=== PATIENT | male | born 1970 | race Caucasian/White ===

== ENCOUNTER 2020-08-18 12:53 | Observation (INO) | payer BC, SELFPAY ==
[2020-08-18] VITALS (11 sets, daily range): BP systolic 118–141; BP diastolic 74–101; PULSE 65–93; RESP 14–22; TEMP 36.4–36.8; O2SAT 97–100; BMI 27.6
--- NOTE | ~2020-08-18 | XR_ITS ---
EXAMINATION: XR chest 2V DATE: 08/18/2020 14:08 INDICATION: Chest pain and right arm numbness TECHNIQUE: Frontal and lateral views of the chest are obtained COMPARISON: 06/22/2012 FINDINGS: There is minimal airspace opacity of the right midlung zone. There is no pleural effusion o r pneumothorax. The cardiomediastinal silhouette is normal. The visualized bones and soft tissues are unremarkable. IMPRESSION: 1. Minimal airspace opacity of the right midlung zone, likely infectious or inflammatory. Reviewed, dictated and finalized at location A. IMPRESSION: 1. Minimal airspace opacity of the right midlung zone, likely infectious or inf lammatory.
--- NOTE | ~2020-08-18 | CT_ITS ---
EXAMINATION: CTA brain carotid DATE: 08/18/2020 13:41 INDICATION: Right-sided face arm and leg numbness TECHNIQUE: Computed tomographic angiography (CTA) of the head was performed without and with 100 mL O mnipaque-350 intravenous contrast. CTA of the neck was performed with intravenous contrast. The dose- length product was 1776.21 mGy-cm. Maximum intensity projection and volume rendered 3D-reconstruction s were created by the technologist on a separate workstation. Automated exposure control and iterativ e reconstruction technique were employed. COMPARISON: None. FINDINGS: HEAD CTA: There is no intracranial hemorrhage, acute infarction, or abnormal mass lesion. The ventric les are normal. There is no abnormal mass effect or midline shift. The guardado-white matter differentiat ion is normal. The basal cisterns are patent. The orbits are normal. There is mild mucosal thickening of the paranasal sinuses. There is no significant stenosis of the basilar artery or posterior cerebral arteries. There is no si gnificant stenosis of the intracranial internal carotid arteries or the anterior or middle cerebral a rteries. The anterior communicating artery and posterior communicating arteries are normal. There is no aneurysm. NECK CTA: The thyroid gland is unremarkable. The submandibular and parotid glands are symmetric. Ther e is no lymphadenopathy. There are no masses identified. The airway is unremarkable. Mild cervical sp ondylosis is noted. The superior mediastinum is unremarkable. There is 0% stenosis of the proximal right internal carotid artery relative to normal distal artery l umen diameter (NASCET criteria). There is 0% stenosis of the proximal left internal carotid artery re lative to normal distal artery lumen diameter. The right vertebral artery is hypoplastic. IMPRESSION: 1. No acute intracranial abnormality. Normal head CTA. 2. 0% stenosis of the proximal right internal carotid artery relative to normal distal artery lumen d iameter (NASCET criteria). 3. 0% stenosis of the proximal left internal carotid artery relative to normal distal artery lumen di ameter. 4. Hypoplastic right vertebral artery. Reviewed, dictated and finalized at location A. IMPRESSION: 1. No acute intracranial abnormality. Normal head CTA. 2. 0% stenosis of the proximal right internal carotid artery relative to normal distal artery lumen diameter (NASCET criteria). 3. 0% stenosis of the proximal left internal carotid artery relative to normal distal artery lumen diameter. 4. Hypoplastic right vertebral artery.
--- NOTE | ~2020-08-18 | MR_ITS ---
EXAMINATION: MR brain/brain stem wo con DATE: 08/19/2020 12:54 INDICATION: Right-sided numbness. TECHNIQUE: Magnetic resonance imaging (MRI) of the brain and brainstem was performed without intraven ous contrast. Sequences included sagittal and axial T1-weighted FSE, axial diffusion-weighted FS EPI, axial T2*-weighted GRE, axial T2-weighted FLAIR Propeller, and axial T2-weighted Propeller. Apparent diffusion coefficient (ADC) maps were created. COMPARISON: Head CT 08/18/2020 FINDINGS: There is no intracranial hemorrhage, acute infarction, or abnormal intracranial mass lesion . The ventricles are normal in size. There is mild mucosal thickening in the paranasal sinuses. The o rbits are normal. The mastoid air cells are normal. IMPRESSION: 1. Normal brain. Reviewed, dictated and finalized at location A. IMPRESSION: 1. Normal brain.
--- NOTE | 2020-08-18 12:54 | ECG_ITS ---
Measurements Intervals [place] Rate: 85 P: 60 SC: 158 QRS: 67 QRSD: 86 T: 29 QT: 352 QTc: 420 Interpretive Statements SINUS RHYTHM NORMAL ECG Electronically Signed On 08-18-2020 20:04:47 CDT by Memo Thomas D.O.
[2020-08-18 13:08] LABS: Basophils Percent Auto 0.8 % (0.2-1.2); Eosinophils Absolute Auto 0.2 K/mm3 (0-0.3); Eosinophils Percent Auto 4.2 % (0-4.4); Hematocrit 44.1 % (42.0-52.0); Hemoglobin 14.9 g/dL (14.0-18.0); Immature Granulocyte Absolute 0.01 K/mm3 (0.00-0.031); Immature Granulocyte Percent A 0.2 % (0-0.5); Lymphocytes Absolute Auto 1.15 K/mm3 (0.9-3.2); Lymphocytes Percent Auto 23.9 % (18.3-44.2); Mean Corpuscular HGB Conc 33.8 g/dl (32-36); Mean Corpuscular Hemoglobin 30.3 pg (26-34); Mean Corpuscular Volume 89.6 fl (80-100); Mean Platelet Volume 9.6 fl (7.4-10.4); Monocytes Absolute Auto 0.5 K/mm3 (0.1-0.6); Monocytes Percent Auto 10.2 % (2.6-8.5); Neutrophils Absolute Auto 2.9 K/mm3 (1.3-6.7); Neutrophils Percent Auto 60.7 % (45.5-73.1); Platelet Count Result 252 k/mm3 (150-375); Red Blood Count 4.92 M/mm3 (4.6-6.20); Red Cell Distribution Width 11.9 % (11.5-14.5); White Blood Count 4.8 K/mm3 (4.5-10.0)
--- NOTE | 2020-08-18 13:14 | ED.GENADULT ---
HPI - General Adult General Chief complaint: Chest Pain Stated complaint: chest pain Time Seen by Provider: 08/18/20 12:59 Source: patient History of Present Illness HPI narrative: Patient is a 49 y/o male complaining intermittent chest pain for last 2 weeks. He describes his chest pain as a pulled muscle. He rates his pain as 3/10. There is no alleviating or exacerbating factor. He also noticed some right sided numbness/tingling since yesterday afternoon. He is not sure about the exact time of onset. He is able to move all 4 extremities and ambulate without difficulty. Related Data Home Medications Medication Instructions Recorded Confirmed dextroamphetamine-amphetamine 20 20 mg PO DAILY 08/06/20 08/18/20 mg tablet Sudafed 12 Hour 0.5 tablet PO HS 08/18/20 08/18/20 Allergies Allergy/AdvReac Type Severity Reaction Status Date / Time No Known Allergies Allergy Verified 08/18/20 17:52 Review of Systems Constitutional: Constitutional: Denies chills, Denies fever(s), Denies headache(s) and Denies weakness Eyes: Eyes: Denies blurry vision ENT: Denies headache(s) and Denies neck pain Cardiovascular: Cardiovascular: Reports chest pain and Denies dyspnea Respiratory: Respiratory: Denies cough and Denies dyspnea Gastrointestinal: Gastrointestinal: Denies abdominal pain, Denies diarrhea, Denies nausea and Denies vomiting Genitourinary: Genitourinary: Denies hematuria and Denies dysuria Musculoskeletal: Musculoskeletal: Denies back pain and Denies neck pain Neurologic: Denies headache(s), Reports numbness, Reports Sensory deficit (Neuro), Reports tingling and Denies weakness [facility] Surgical History Surgical History H/O cardiac radiofrequency ablation 1994 History of appendectomy 1991 Social History Social History Smoking status: Never smoker Second hand tobacco smoke exposure: No Alcohol intake: current Drinks per week: 10 Substance use: current Substance use type: does not use Spiritual care concerns: No Exam Const: General: no acute distress and well developed Orientation/consciousness: oriented to person, oriented to place, oriented to time and patient oriented x3 HENMT: Head: normocephalic Ears: external ears normal General nose exam: Normal external nose present Eyes: General: appearance normal, both eyes and all related structures Conjunctivae: conjunctivae normal Neck: Neck: normal visual inspection and full ROM Chest: Chest palpation & inspection: normal inspection of the chest and no tenderness Resp: Effort & Inspection: normal respiratory effort Auscultation: clear to auscultation bilaterally Cardio: Rate: regular rate Rhythm: regular rhythm GI: GI Palp: No abdominal tenderness and Yes Soft to palpation Skin: General skin exam: normal color and turgor normal Neuro: General: oriented to person, oriented to place, oriented to time and patient oriented x3 Cranial nerves: Yes CN's II-XII intact bilaterally Cognition (Neuro): normal cognition Speech: normal speech Motor exam (neuro): 5/5 motor strength present throughout Sensory Exam: normal sensation Coordination: [id number] test normal and [id number]-[id number] test normal Extrem: General: normal to inspection, full ROM and no pedal edema Psych: Appearance: grossly normal Mental Status: mental status grossly normal Affect: normal affect Course Consultations Consultation #1: Discussed with OMER Thrasher, who agrees to admit to Dr. Cisneros. Date: 08/18/20 Time: 15:18 Vital Signs Vital signs: Vital Signs Temperature 36.8 C 08/18/20 12:57 Pulse Rate 93 08/18/20 12:57 Respiratory Rate 22 H 08/18/20 12:57 Blood Pressure 138/99 H 08/18/20 12:57 Pulse Oximetry 99 08/18/20 12:57 Temperature 36.4 C 08/19/20 10:00 Pulse Rate 81 08/19/20 10:00 Respiratory Rate 18 08/19/20 10:00 Blood Pressur
[2020-08-18 13:18] LABS: Prothrombin Time 12.6 Seconds (11.1-14.7)
[2020-08-18 13:19] LABS: Partial Thromboplastin Time 28.3 SECONDS (22.3-36.8)
[2020-08-18 13:20] LABS: Anion Gap 7 mmol/L (8-16); Blood Urea Nitrogen 13 mg/dL (9-20); Calcium 9.5 mg/dL (8.4-10.2); Carbon Dioxide 28 mmol/L (22-30); Chloride 103 mmol/L (98-107); Estimated CRCL calculation 82 ml/min; Estimated Glomerular Filt Rate > 60; Glucose 88 mg/dL (75-110); Sodium 138 mmol/L (137-145)
[2020-08-18 13:31] LABS: Troponin I < 0.012 ng/mL (0.000-0.034)
[2020-08-18] MEDS: ASPIRIN 81 MG CHEWABLE TABLET 324 MG PO (15:31)
[2020-08-18 16:11] LABS: Troponin I < 0.012 ng/mL (0.000-0.034)
--- NOTE | 2020-08-18 17:46 | ADMGEN ---
This patient, Castro Benavides, was admitted to Medical Room 245-. Patient/family oriented to hospital policies and general routines including ID bracelet, bed and alarms, visiting hours, pain management, procedures, bathroom and other care routines, personal items, smoking policy, room service/diet, and visiting hours. Valuables list has been completed. Information on how to activate the Rapid Response Team has been discussed. Patient/Family are encouraged to report perceived risks to care and to ask questions if they do not understand what they are told or what they should do.
[2020-08-18 19:32] LABS: Troponin I < 0.012 ng/mL (0.000-0.034)
[2020-08-18] MEDS: ACETAMINOPHEN 325 MG TABLET 650 MG PO (20:03)
[2020-08-19] VITALS (9 sets, daily range): BP systolic 117–145; BP diastolic 74–78; PULSE 57–91; RESP 16–18; TEMP 36.4–36.7; O2SAT 98–100
[2020-08-19] MEDS: ACETAMINOPHEN 325 MG TABLET 650 MG PO ×2 (01:58→09:53)
--- NOTE | 2020-08-19 06:00 | ECHO_ITS ---
Patient Info Name: Castro Benavides Age: 49 years : 1970 Gender: Male Ht: 70 in Wt: 193 lbs BSA: 2.10 m2 HR: 70 bpm BP: 117 / 74 mmHg Heart Rhythm: Sinus Rhythm Technical Quality: Good Exam Date: 08/19/2020 10:00 AM Exam Location: [facility] Patient Status: Inpatient Admit Date: 08/18/2020 Staff Ordering Physician: Tea Trinidad MD Earring Maker: Gustavo Carlin RDCS Attending Provider: Gabby Smith PA-C Referring Physician: Amos PITTMAN; Exam Type: CA echo doppler color flow Study Info Indications 435.9 - TIA Complete two-dimensional, color flow and Doppler transthoracic echocardiogram is performed. Strain analysis performed. History/Risk Factors TIA w/ right sided tingleness. Summary 1. Left ventricular systolic function is normal, estimated at 60-65%. 2. There is mildly increased left ventricular wall thickness. 3. The left ventricular diastolic function is grade I diastolic dysfunction. 4. Right atrial chamber dimension is mildly enlarged. 5. There is trace mitral valve regurgitation. 6. There is trace tricuspid valve regurgitation. 7. No pulmonary hypertension, estimated pulmonary arterial systolic pressure is 22 mmHg. 8. There is no aortic valve stenosis. Recommendations * Consider transesophageal echocardiogram if clinically indicated. Left Ventricle Left ventricular chamber dimension is normal. Left ventricular systolic function is normal, estimated at 60-65%. There is mildly increased left ventricular wall thickness. The left ventricular diastolic function is grade I diastolic dysfunction. Global longitudinal strain is mildly elevated at -16 %. Right Ventricle Right ventricular chamber dimension is normal. Right ventricular systolic function is normal. Left Atria Left atrial chamber dimension is normal. Right Atria Right atrial chamber dimension is mildly enlarged. Aortic Valve The aortic valve is not well visualized. There is no aortic valve stenosis. There is no aortic valve regurgitation. Pulmonic Valve The pulmonic valve is not well visualized. Mitral Valve The mitral valve has not well visualized. There is trace mitral valve regurgitation. Tricuspid Valve The tricuspid valve leaflets are normal. There is trace tricuspid valve regurgitation. No pulmonary hypertension, estimated pulmonary arterial systolic pressure is 22 mmHg. Pericardium/Pleural The pericardium appears normal. There is no pericardial effusion. Inferior Vena Cava Normal inferior vena cava with >50% collapse upon inspiration consistent with normal right atrial pressure, 5 mmHg. Aorta The aortic root size at the sinus of Valsalva is normal. Left Ventricular Outflow Tract Name Value Normal LVOT 2D LVOT Diameter 2.2 cm LVOT Doppler LVOT Peak Gradient 3 mmHg LVOT Mean Gradient 2 mmHg LVOT VTI 16 cm LVOT VTI/AV VTI Ratio 0.7 LVOT Stroke Volume 58 ml LVOT CO 4.
[2020-08-19] MEDS: ASPIRIN 81 MG ENTERIC TABLET PO (09:53)
--- NOTE | 2020-08-19 10:38 | PM.IMHP ---
H&P: HPI History of Present Illness Date/Time: 08/19/20 0900 Chief complaint: Right sided numbness PMFSH Surgical History Surgical History H/O cardiac radiofrequency ablation 1994 History of appendectomy 1991 Social History Social History Smoking status: Never smoker Second hand tobacco smoke exposure: No Alcohol intake: current Drinks per week: 10 Substance use: current Substance use type: does not use Spiritual care concerns: No Meds Home Medications and Allergies Home Medications Medication Instructions Recorded Confirmed Type dextroamphetamine-amphetamine 20 20 mg PO DAILY 08/06/20 08/18/20 History mg tablet Sudafed 12 Hour 0.5 tablet PO HS 08/18/20 08/18/20 History Allergies Allergy/AdvReac Type Severity Reaction Status Date / Time No Known Allergies Allergy Verified 08/18/20 17:52 Vital Signs Vital Signs - 24 hr 08/18/20 12:57 08/18/20 13:00 08/18/20 13:52 Temperature 98.3 F Pulse Rate 93 90 86 Respiratory Rate 22 H 20 Blood Pressure 138/99 H 139/90 Pulse Oximetry 99 98 08/18/20 15:16 08/18/20 16:54 08/18/20 17:14 Temperature Pulse Rate 80 78 80 Respiratory Rate 20 20 20 Blood Pressure 135/101 H 141/98 H 131/93 H Pulse Oximetry 99 97 99 08/18/20 17:31 08/18/20 17:56 08/18/20 20:00 Temperature 97.5 F L Pulse Rate 80 80 74 Respiratory Rate 20 14 Blood Pressure 131/93 H 139/95 H Pulse Oximetry 100 100 08/18/20 21:55 08/18/20 21:57 08/19/20 00:00 Temperature 98.0 F 98.0 F Pulse Rate 65 65 60 Respiratory Rate 16 16 Blood Pressure 118/74 118/74 Pulse Oximetry 99 99 08/19/20 01:52 08/19/20 04:00 08/19/20 05:43 Temperature 98.1 F 97.9 F Pulse Rate 57 L 61 64 Respiratory Rate 16 16 Blood Pressure 122/77 117/74 Pulse Oximetry 99 100 08/19/20 10:00 Temperature 97.6 F Pulse Rate 81 Respiratory Rate 18 Blood Pressure 128/77 Pulse Oximetry 99 H&P: Results Labs Labs: Short CBC 08/18/20 Range/Units 13:02 WBC 4.8 (4.5-10.0) K/mm3 Hgb 14.9 (14.0-18.0) g/dL Hct 44.1 (42.0-52.0) % Plt Count 252 (150-375) k/mm3 BMP 08/18/20 13:02 Sodium 138 Potassium 4.0 Chloride 103 Carbon Dioxide 28 BUN 13 Creatinine 1.00 Glucose 88 Calcium 9.5 Cardiac Enzymes 08/18/20 08/18/20 08/18/20 Range/Units 13:02 15:43 19:03 Troponin I < 0.012 < 0.012 < 0.012 (0.000-0.034) ng/mL
--- NOTE | 2020-08-19 11:53 | WPDNEURCNPN ---
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 Advised to treat himself as normal if the MRI of the brain comes back negative then we do not need to pursue any further except wait for the echocardiogram report but if MRI is abnormal obviously discuss accordingly. Consult date: 08/18/20 Time Seen: 11:30 HPI: Castro Benavides is a 49 year old maleHas been admitted to the hospital for the complaints of intermittent chest pain of 2 weeks duration described as a sensation of pulled muscle pain graded as 3/10 with no alleviating or exacerbating factors but at the same time he noted right-sided numbness and tingling sensation since yesterday before the admission patient has been on stimulant 20 mg daily he is not allergic to any medications evaluation revealed him to have normal CBC normal basic metabolic pa and negative CTA except the hypoplastic right vertebral artery MRI is pending chest x-ray negative echocardiogram the report is not available examination reveals him to be awake alert cooperative in no obvious acute distress his speech nor dysphasic no dysarthric no dysphonic. head normocephalic with no cranial bruit ear nose throat examination normal heart regular lungs clear abdomen soft neurological he is awake alert oriented x3 speech nor dysphasic no dysarthric no dysphonic pupils round regular feels the vision full extraocular moves full face symmetrical tongue midline motor examination revealed him to have normal strength and tone reflexes symmetrical plantars are downgoing there is no evidence of gross sensory or cerebellar deficit. [facility] Surgical History Surgical History H/O cardiac radiofrequency ablation 1994 History of appendectomy 1991 Social History Social History Smoking status: Never smoker Second hand tobacco smoke exposure: No Alcohol intake: current Drinks per week: 10 Substance use: current Substance use type: does not use Spiritual care concerns: No Meds Home Medications and Allergies Home Medications Medication Instructions Recorded Confirmed Type dextroamphetamine-amphetamine 20 20 mg PO DAILY 08/06/20 08/18/20 History mg tablet Sudafed 12 Hour 0.5 tablet PO HS 08/18/20 08/18/20 History Allergies Allergy/AdvReac Type Severity Reaction Status Date / Time No Known Allergies Allergy Verified 08/18/20 17:52 Vital Signs Vital Signs - 24 hr 08/18/20 12:57 08/18/20 13:00 08/18/20 13:52 Temperature 36.8 C Pulse Rate 93 90 86 Respiratory Rate 22 H 20 Blood Pressure 138/99 H 139/90 Pulse Oximetry 99 98 08/18/20 15:16 08/18/20 16:54 08/18/20 17:14 Temperature Pulse Rate 80 78 80 Respiratory Rate 20 20 20 Blood Pressure 135/101 H 141/98 H 131/93 H Pulse Oximetry 99 97 99 08/18/20 17:31 08/18/20 17:56 08/18/20 20:00 Temperature 36.4 C L Pulse Rate 80 80 74 Respiratory Rate 20 14 Blood Pressure 131/93 H 139/95 H Pulse Oximetry 100 100 08/18/20 21:55 08/18/20 21:57 08/19/20 00:00 Temperature 36.7 C 36.7 C Pulse Rate 65 65 60 Respiratory Rate 16 16 Blood Pressure 118/74 118/74 Pulse Oximetry 99 99 08/19/20 01:52 08/19/20 04:00 08/19/20 05:43 Temperature 36.7 C 36.6 C Pulse Rate 57 L 61 64 Respiratory Rate 16 16 Blood Pressure 122/77 117/74 Pulse Oximetry 99 100 08/19/20 08:00 08/19/20 10:00 Temperature 36.4 C Pulse Rate 80 81 Respiratory Rate 18 Blood Pressure 128/77 Pulse Oximetry 99 Results Labs CBC & Chem 7: 08/18/20 13:02 08/18/20 13:02 Labs: Short CBC 08/18/20 Range/Units 13:02 WBC 4.8 (4.5
--- NOTE | 2020-08-19 19:13 | PM.SD ---
Same Day Admit/Disch: HPI History of Present Illness Chief complaint: Right sided numbness Narrative: Date of Admission 08/18/20 Date of Service/H&P and Discharge: 08/19/20 The supervising physician for this short-stay summary is Dr. Kenny Fernández. Mr. Weiss is a pleasant 49-year-old male who presented to the ED for evaluation of intermittent chest discomfort over the last few weeks and intermittent right cheek, arm, leg numbness and tingling. He saw PCP for these symptoms on Wednesday08/16/20 and PCP ordered outpatient cardiac stress testing for next week. At time of my encounter, patient is not having any chest pain and right upper extremity paresthesia is improved but still present. He reports his chest pain as bilateral chest wall tenderness that feels like a pulled muscle . He admits experiencing significant stress at home which he feels could be contributing to his symptoms. He also describes he has been dealing with intermittent posterior headaches for months. He denies any speech changes, vision changes, swallowing difficulty or gait disturbances. He is still experiencing this headache this morning but it is improved from last night. He denies any neck pain, back pain, bowel or bladder dysfunction. EKG demonstrates normal sinus rhythm without ST changes, troponins negative x3, no ACS is suspected. 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 MRI brain is normal. Echocardiogram shows grade 1 diastolic dysfunction, normal systolic function EF 60-65%. Routine lab work is unremarkable. He has been evaluated Neurology, Dr. Herrera. Overall, symptoms are improved and workup is unremarkable. It is possible his multiple vague symptoms may be precipitated by increased stress at home and he is encouraged to continue following with his counselor/therapist. His headaches may be related to allergies and sinus congestion. He has been started on Flonase, Zyrtec. He describes some heartburn/reflux symptoms and has been started on oral Protonix. Neurologic exam is normal this morning and he is hemodynamically stable for discharge 08/19/20 with instructions to proceed with his cardiac stress testing next week and follow-up with PCP. [facility] Surgical History Surgical History H/O cardiac radiofrequency ablation 1994; due to paroxysmal SVT. History of appendectomy 1991 Family History Family History (Updated 08/19/20 @ 19:54 by Gabby Smith PA-C) Mother COPD (chronic obstructive pulmonary disease) Lung cancer Father Bipolar disorder Social History Social History (Updated 08/19/20 @ 19:55 by Gabby Smith PA-C) Social History: Mr. Benavides lives at home in [place]. 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 He drinks about 10 drinks per week, a combination of liquor and beer. Never smoker, denies other substance use. His PCP is Dr. Roberth Marquez. He is full code status. Smoking status: Never smoker Second hand tobacco smoke exposure: No Alcohol intake: current Drinks per week: 10 Substance use: current Substance use type: does not use Spiritual care concerns: No Same Day Admit/Disch: Med Pre-admit Medications Home Medications Medication Instructions Recorded Confirmed Type dextroamphetamine-amphetamine 20 20 mg PO DAILY 08/06/20 08/18/20 History mg tablet aspirin 81 mg PO QAM 30 Days #30 tablet 08/19/20 Rx cetirizine [Zyrtec] 10 mg PO DAILY 30 Days #30 tablet 08/19/20 Rx fluticasone propionate 1 spray NASAL BID #9.9 ml 08/19/20 Rx pantoprazole 40 mg PO QAM 30 Days #30 tablet 08/19/20 Rx Exam Narrative: Exam Narrative: Last Vital Signs Temp 98.1 F 08/19/20 14:00 Pulse
== END 2020-08-19 16:40 | disposition home or self-care (01) ==
LOC: ANHED 15:27 → ANH2MED 17:24
PROVIDERS: Admitting Provider Internal Medicine; Emergency Provider Emergency Medicine; PCP Emergency Medicine; Visit Provider Family Medicine
DX: R07.9 Chest pain, unspecified (principal); G81.91 Hemiplegia, unspecified affecting right dominant side
CPT/HCPCS: 36415; 70496; 70498; 70551; 71046; 80048; 84484; 85025; 85610; 85730; 93005; 93306; 99285; A9270; G0378; Q9967

== ENCOUNTER 2020-08-27 09:43 | Outpatient (CLI) | payer BC, SELFPAY ==
--- NOTE | 2020-08-27 | EST_ITS ---
Patient Info Name: Castro Benavides Age: 49 years : 1970 Gender: Male Ht: 70 in Wt: 190 lbs BSA: 2.08 m2 Exam Date: 08/27/2020 10:05 AM Exam Location: [facility] Stress Patient Status: Outpatient Admit Date: 08/27/2020 Staff Ordering Physician: Roberth Marquez MD Attending Provider: Roberth Marquez MD Exercise Technologist: Yudelka Gregorio RDCS Exam Type: CA stress test treadmill Study Info Indications R07.9 - Chest pain, unspecified A treadmill exercise stress test was performed. Summary 1. Negative treadmill stress test for ischemia. 2. No chest discomfort with stress test. 3. Exercise capacity very good at >10 METS. 4. Mild resting hypertension with a rapid increase in blood pressure up to 179/95 at the end of the 2nd minute of exercise. Peak blood pressures were 247/85, and 221/122 mmHg. Protocol: [facility] ECG Details Stage: REST Duration (min): 7 min : 40 sec Speed (mph): 0.0 Grade (%): 0 HR (bpm): 89 SBP (mmHg): 145 DBP (mmHg): 93 METS: --- Stage: REST Duration (min): 23 min : 15 sec Speed (mph): 0.0 Grade (%): 0 HR (bpm): 98 SBP (mmHg): 145 DBP (mmHg): 93 METS: --- Stage: STAGE 1 Duration (min): 1 min : 0 sec Speed (mph): 1.7 Grade (%): 10 HR (bpm): 111 SBP (mmHg): 145 DBP (mmHg): 93 METS: --- Stage: STAGE 1 Duration (min): 2 min : 0 sec Speed (mph): 1.7 Grade (%): 10 HR (bpm): 112 SBP (mmHg): 145 DBP (mmHg): 93 METS: --- Stage: STAGE 1 Duration (min): 3 min : 0 sec Speed (mph): 1.7 Grade (%): 10 HR (bpm): 114 SBP (mmHg): 179 DBP (mmHg): 95 METS: --- Stage: STAGE 2 Duration (min): 1 min : 0 sec Speed (mph): 2.5 Grade (%): 12 HR (bpm): 122 SBP (mmHg): 179 DBP (mmHg): 95 METS: --- Stage: STAGE 2 Duration (min): 2 min : 0 sec Speed (mph): 2.5 Grade (%): 12 HR (bpm): 134 SBP (mmHg): 185 DBP (mmHg): 95 METS: --- Stage: STAGE 2 Duration (min): 3 min : 0 sec Speed (mph): 2.5 Grade (%): 12 HR (bpm): 140 SBP (mmHg): 185 DBP (mmHg): 95 METS: --- Stage: STAGE 3 Duration (min): 1 min : 0 sec Speed (mph): 3.4 Grade (%): 14 HR (bpm): 140 SBP (mmHg): 201 DBP (mmHg): 94 METS: --- Stage: STAGE 3 Duration (min): 2 min : 0 sec Speed (mph): 3.4 Grade (%): 14 HR (bpm): 145 SBP (mmHg): 201 DBP (mmHg): 94 METS: --- Stage: STAGE 3 Duration (min): 3 min : 0 sec Speed (mph): 3.4 Grade (%): 14 HR (bpm): 156 SBP (mmHg): 194 DBP (mmHg): 94 METS: --- Stage: STAGE 4 Duration (min): 1 min : 0 sec Speed (mph): 4.2 Grade (%): 16 HR (bpm): 164 SBP (mmHg): 194 DBP (mmHg): 94 METS: --- Stage: STAGE 4 Duration (min): 2 min : 0 sec Speed (mph): 4.2 Grade (%): 16 HR (bpm): 172 SBP (mmHg): 210
== END 2020-08-27 09:44 | disposition home or self-care (01) ==
PROVIDERS: PCP Emergency Medicine; Visit Provider Emergency Medicine
DX: R07.9 Chest pain, unspecified (principal); I10 Essential (primary) hypertension
CPT/HCPCS: 93017

== ENCOUNTER → 2021-11-10 07:50 | Outpatient (CLI) | payer BC, SELFPAY ==
--- NOTE | ~2021-11-10 | MR_ITS ---
EXAMINATION: MR brain/brain stem wo/w con DATE: 11/10/2021 08:51 INDICATION: Headache. Neuropathy. TECHNIQUE: Magnetic resonance imaging (MRI) of the brain and brainstem was performed without and with 18 mL MultiHance intravenous contrast. Sequences included sagittal and axial T1-weighted FSE, axial diffusion-weighted FS EPI, axial T2*-weighted GRE, axial T2-weighted FLAIR Propeller, and axial T2-we ighted Propeller. Postcontrast sequences included axial and coronal T1-weighted FSE. Apparent diffusi on coefficient (ADC) maps were created. COMPARISON: Brain MRI 08/19/2020, head CT 08/18/2020 FINDINGS: There is no intracranial hemorrhage, acute infarction, or abnormal intracranial mass lesion . The ventricles are normal in size. The orbits are normal. There is mild mucosal thickening in the e thmoid sinuses. The mastoid air cells are normal. IMPRESSION: 1. Normal brain. Reviewed, dictated and finalized at location A. TROMAGNET CRANE OPERATOR IMPRESSION: 1. Normal brain.
[2021-11-10 08:26] LABS: Estimated Glomerular Filt Rate > 60
== END ==
PROVIDERS: PCP Emergency Medicine; Visit Provider Emergency Medicine
DX: G62.9 Polyneuropathy, unspecified (principal)
CPT/HCPCS: 70553; A9577

== ENCOUNTER → 2021-12-06 00:46 | Outpatient (CLI) | payer BC, SELFPAY ==
[2021-12-06 23:19] LABS: SARS-CoV-2 RNA PCR Positive
== END ==
PROVIDERS: PCP Emergency Medicine; Visit Provider Emergency Medicine
DX: U07.1 COVID-19 (principal)
CPT/HCPCS: C9803; U0003; U0005

== ENCOUNTER 2022-10-09 00:48 | Day surgery (SDC) | payer BC, SELFPAY ==
[2022-09-30 11:44] VITALS: BMI 28.8
--- NOTE | 2022-10-09 10:41 | P.PNAN_ITS ---
Anes - Initial Pre Proc Eval Procedure: Operation Date: 10/09/22 14:30 Proposed Procedures p Screening Colonoscopy - Cristhian Caceres MD Date/Time: 10/09/22 10:41 Surgeon: Cristhian Caceres MD Pre Op Diagnosis: neoplasm screening Patient Data Age: 51 Gender: M Height: 1.78 m Weight: 91 kg Allergies Allergy/AdvReac Type Severity Reaction Status Date / Time No Known Allergies Allergy Verified 10/09/22 12:59 Home Medications Medication Instructions Recorded Confirmed Type dextroamphetamine-amphetamine 20 20 mg PO DAILY 08/06/20 09/30/22 History mg tablet (Adderall) cetirizine 10 mg tablet (Zyrtec) 10 mg PO DAILY 30 days #30 tabs 08/19/20 09/30/22 Rx fluticasone propionate 50 1 spray intranasal BID #9.9 mL 08/19/20 09/30/22 Rx mcg/actuation nasal spray,suspension irbesartan 150 mg tablet 150 mg PO DAILY 09/02/21 09/30/22 History Patient hx anesthesia problems: none Family hx anesthesia problems: none Results Review: All pre-operative results and documents have been reviewed as part of the pre- operative evaluation. [facility] Past Medical History Medical History (Updated 10/09/22 @ 10:41 by Jose Luis Burton DO) ADHD Anxiety Hypertension BRENT (obstructive sleep apnea) Surgical History Surgical History H/O cardiac radiofrequency ablation 1994; due to paroxysmal SVT. History of appendectomy 1991 Family History Family History (Updated 08/19/20 @ 19:54 by Gabby Smith PA-C) Mother COPD (chronic obstructive pulmonary disease) Lung cancer Father Bipolar disorder Social History Social History (Updated 08/19/20 @ 19:55 by Gabby Smith PA-C) Social History: Mr. Benavides lives at home in [place]. 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 He drinks about 10 drinks per week, a combination of liquor and beer. Never smoker, denies other substance use. His PCP is Dr. Roberth Marquez. He is full code status. Smoking status: Never smoker Second hand tobacco smoke exposure: No Alcohol intake: current Drinks per week: 10 Alcohol use details: few times weekly Substance use: never Substance use type: does not use Living arrangements: alone Spiritual care concerns: No Anes - Eval Final PreProcedure Day of Procedure 10/09/22 10:41 Patient weight: overweight Heart: regular rate and rhythm Lungs: clear to auscultation Airway: Mallampati scale class II Neurological: alert and oriented Last oral intake: >/= 8 hours ASA classification: III Emergent: no Anesthetic plan: proceed Anesthesia type and monitoring: general GIVS and standard monitoring Results Review: All pre-operative results and documents have been reviewed as part of the pre- operative evaluation. Informed Consent: The patient's anesthetic plan and its attendant risks and benefits were discussed with the patient/family/POA. Questions were solicited and answers provided to the satisfaction of the patient/family/POA.
[2022-10-09 12:59] VITALS: BP 123/81; PULSE 54; RESP 18; TEMP 36.1; O2SAT 100
[2022-10-09] MEDS: LACTATED RINGERS 1,000 ML 150 ML IV CONT (13:09)
--- NOTE | 2022-10-09 13:39 | PM.HPGS ---
History of Present Illness History of Present Illness Consent: Risks, benefits, and alternatives have been discussed and questions answered. Patient agrees to proceed with procedure. Chief complaint: neoplasm screening Narrative: Castro Benavides is a 51 year old male here for first screening colonoscopy Review of Systems Constitutional: Constitutional: Denies headache(s) and Denies weakness Eyes: Eyes: Denies blurry vision ENT: Reports Normal hearing present, Denies headache(s) and Denies neck pain Cardiovascular: Cardiovascular: Denies chest pain and Denies dyspnea Respiratory: Respiratory: Denies dyspnea Gastrointestinal: Gastrointestinal: Reports no additional gastrointestinal complaints Genitourinary: Genitourinary: Denies dysuria Musculoskeletal: Musculoskeletal: Denies neck pain Integumentary/Breasts: Skin/Breast: Denies dry skin Neurologic: Reports Normal hearing present, Denies headache(s) and Denies weakness Psychiatric: Psychiatric: Denies anxiety Endocrine: Endocrine: Denies change in body appearance Hematologic/Lymphatic: Hematologic/Lymphatic: Denies easy bleeding Allergic/Immunologic: Allergic/Immunologic: Denies urticaria PMF Past Medical History Medical History (Updated 10/09/22 @ 13:40 by Cristhian Caceres MD) ADHD Anxiety Colon cancer screening Hypertension BRENT (obstructive sleep apnea) Surgical History Surgical History H/O cardiac radiofrequency ablation 1994; due to paroxysmal SVT. History of appendectomy 1991 Family History Family History (Updated 08/19/20 @ 19:54 by Gabby Smith PA-C) Mother COPD (chronic obstructive pulmonary disease) Lung cancer Father Bipolar disorder Social History Social History (Updated 08/19/20 @ 19:55 by Gabby Smith PA-C) Social History: Mr. Benavides lives at home in [place]. 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 He drinks about 10 drinks per week, a combination of liquor and beer. Never smoker, denies other substance use. His PCP is Dr. Roberth Marquez. He is full code status. Smoking status: Never smoker Second hand tobacco smoke exposure: No Alcohol intake: current Drinks per week: 10 Alcohol use details: few times weekly Substance use: never Substance use type: does not use Living arrangements: alone Spiritual care concerns: No Meds Home Medications and Allergies Home Medications Medication Instructions Recorded Confirmed Type dextroamphetamine-amphetamine 20 20 mg PO DAILY 08/06/20 09/30/22 History mg tablet (Adderall) cetirizine 10 mg tablet (Zyrtec) 10 mg PO DAILY 30 days #30 tabs 08/19/20 09/30/22 Rx fluticasone propionate 50 1 spray intranasal BID #9.9 mL 08/19/20 09/30/22 Rx mcg/actuation nasal spray,suspension irbesartan 150 mg tablet 150 mg PO DAILY 09/02/21 09/30/22 History Allergies Allergy/AdvReac Type Severity Reaction Status Date / Time No Known Allergies Allergy Verified 10/09/22 12:59 Vital Signs Vital Signs - 24 hr 10/09/22 12:59 Temperature 97 F L Pulse Rate 54 L Respiratory Rate 18 Blood Pressure 123/81 Pulse Oximetry 100 Oxygen Delivery Room Air Exam Const: General: comfortable and no acute distress HENMT: Face/Nose/Sinus: Normal nares present Eyes: General: appearance normal, both eyes and all related structures Neck: Neck: no JVD Resp: Auscultation: clear to auscultation bilaterally Cardio: Rate: regular rate Rhythm: regular rhythm GI: Inspection: non-distended GI Palp: Yes Soft to palpation Skin: General skin exam: normal color Neuro: General: gait normal Speech: normal speech Extrem: General: normal to inspection Psych: Mental Status: mental status grossly normal Assessment and Plan Assessment and plan (1) Colon cancer screening: Code(s): Z12.11 - Encounter for screening for malignant neoplasm of colon
[2022-10-09 13:56] VITALS: BP 104/71; PULSE 63; RESP 21; O2SAT 98
[2022-10-09 14:06] VITALS: BP 132/95; PULSE 62; RESP 22; O2SAT 98
[2022-10-09 14:16] VITALS: BP 140/100; PULSE 56; RESP 17; O2SAT 98
== END 2022-10-09 14:34 | disposition home or self-care (01) ==
PROVIDERS: PCP Emergency Medicine; Visit Provider Internal Medicine Gastroenterology
PROC: 0DJD8ZZ Inspection of Lower Intestinal Tract, Via Natural or Artificial Opening Endoscopic (ICD-10-PCS; CPT 45378; principal; 2022-10-09 14:30)
DX: Z12.11 Encounter for screening for malignant neoplasm of colon (principal); K57.30 Diverticulosis of large intestine without perforation or abscess without bleeding; K64.8 Other hemorrhoids; I10 Essential (primary) hypertension; G47.33 Obstructive sleep apnea (adult) (pediatric); F90.9 Attention-deficit hyperactivity disorder, unspecified type
CPT/HCPCS: 45378; J2704; J7120

== ENCOUNTER 2022-10-12 10:43 | Outpatient (NON) | payer BC, SELFPAY | END 2022-10-12 10:44 | disposition home or self-care (01) | LOC: ANHLAB 10-13 10:45 | PROVIDERS: PCP Emergency Medicine; Visit Provider Nurse Practitioner | DX: C44.212 Basal cell carcinoma of skin of right ear and external auricular canal (principal) | CPT/HCPCS: 88305 ==

== ENCOUNTER 2022-11-24 09:42 | Outpatient (CLI) | payer BC, SELFPAY ==
--- NOTE | ~2022-11-24 | CT_ITS ---
CT Scan of the Chest without Contrast: Clinical Indication: Dyspnea, Covid Technique: Contiguous sections were acquired throughout the chest without intravenous contrast. Dose reduction technique was used on this scan by utilizing automated exposure control and iterative recon struction technique. The dose-length product (DLP) was 339.37 mGy-cm. Findings: There is no evidence of any significant mediastinal, hilar or axillary lymphadenopathy. Small calcifi ed right hilar and subcarinal lymph nodes are present. No aortic aneurysm. There is no evidence of pleural or pericardial effusion. The lungs are clear, aside from several scattered small calcified granulomas.. Images through the upper abdomen reveal calcified splenic granulomas. Impression: No acute abnormalities seen. Evidence of prior granulomatous disease. Reviewed, dictated and finalized at [facility]. TIC SURGERY ASSISTANT Impression: No acute abnormalities seen. Evidence of prior granulomatous disease.
--- NOTE | 2022-11-25 11:10 | WPDPFTINT ---
PFT Procedure Performed PFT Procedure Performed Spirometry with Pre/Post Bronchodilator Plethysmography (Lung Vol) Diffusing Cap (DLCO) Flow Vol Loop PFT Interpretation Lung volumes were measured with the body plethysmography method. Lung volumes are unremarkable. Spirometry showed normal expiratory flow rates and a normal FEV1 to FVC ratio 73%. Following administration of a bronchodilator there was no significant change in the expiratory flow rates. Lung diffusion capacity is within the normal range at 86% predicted. The flow-volume loop is unremarkable. Impression: Spirometry, lung volumes, and lung diffusion capacity all within the normal range.
== END 2022-11-24 09:43 | disposition home or self-care (01) ==
PROVIDERS: PCP Emergency Medicine; Visit Provider Physician Assistant
DX: R06.00 Dyspnea, unspecified (principal)
CPT/HCPCS: 71250; 94060; 94726; 94729

== ENCOUNTER 2022-12-14 13:04 | Outpatient (NON) | payer BC, SELFPAY | END 2022-12-14 13:05 | disposition home or self-care (01) | LOC: ANHLAB 13:05 | PROVIDERS: PCP Emergency Medicine; Visit Provider Nurse Practitioner | DX: C44.212 Basal cell carcinoma of skin of right ear and external auricular canal (principal) | CPT/HCPCS: 88305; 88331 ==

== ENCOUNTER 2024-03-13 07:58 | Outpatient (CLI) | payer BC, SELFPAY ==
--- NOTE | 2024-03-13 08:00 | ECG_ITS ---
SEE SCANNED COPY FOR CONFIRMED REPORT MTDD
== END 2024-03-13 07:59 | disposition home or self-care (01) ==
LOC: ANHSURGERY 08:02
PROVIDERS: PCP Emergency Medicine; Visit Provider Surgery
DX: K40.90 Unilateral inguinal hernia, without obstruction or gangrene, not specified as recurrent (principal); I10 Essential (primary) hypertension; Z01.818 Encounter for other preprocedural examination
CPT/HCPCS: 36415; 86850; 86900; 86901; 93005

== ENCOUNTER 2024-03-15 00:28 | Day surgery (SDC) | payer BC, SELFPAY ==
[2024-03-06 11:51] VITALS: BMI 28.0
--- NOTE | 2024-03-06 11:55 | PC.NURSE ---
Report to the Outpatient Waiting Room, entrance under the green pavilion located off [facility], at time 6:00 on date 03/15/24. Planned Procedure Time: 7:30. Time changes happen often and if your time is changed the preop area will call you the afternoon before. - You and your visitor will be asked to self-screen and do not enter if you have any COVID symptoms. - A mask is optional within the hospital at this time. Patients may have clear liquids (water, carbonated beverages, clear teas, apple juice) until 3 hours prior to surgery (4:30) with a maximum of 20 ounces. - No food from midnight until time of surgery Take the following medications with a SIP of water the morning of surgery: NONE DO NOT STOP ANY OF YOUR OTHER PRESCRIPTION MEDICATIONS PRIOR TO SURGERY ?EXCEPT THE FOLLOWING Medications to discontinue per physician: N/A Date to take last dose: N/A Please no make-up, nail scottish, hairspray, perfume, deodorant, or body powder the day of surgery. No jewelry (including any body piercings) or valuables the day of surgery, leave them at home. Please take a shower or bath the night before, or the morning of, surgery with an antibacterial soap. Wear comfortable, loose fitting clothing. - Jewelry must be removed prior to entering the operating room. Rings and piercings that are not removed may be cut off. - The hospital will not accept responsibility for valuables. - Please leave all valuables, including medications, at home the day of surgery. If you are going home after surgery, a licensed cab driver must drive you home. - NO public transportation without another adult if you receive anesthesia. - We recommend that an adult stay with you for 24 hours following discharge. - We also recommend that you do not drive, make important decision, drink alcoholic beverages, or take any drugs that were not prescribed by your health care provider for at least 24 hours after your discharge time. Follow any additional instructions given to you from your surgeon. If you or anyone in your household have experienced Covid symptoms in the past week, please notify your surgeon or the nurse liaison at the phone number below for possible testing. Telephone instructions given to MARLENY NORIEGA and asked if any additional questions and then verbalized understanding. Patient advised to call surgeon office or pre surgery nurse liaison [phone] if any additional questions.
--- NOTE | 2024-03-13 13:20 | PM.SD2 ---
Same Day Admit/Disch: HPI History of Present Illness Chief complaint: Rt Ing Hernia Narrative: Castro Benavides is a 53 year old male who, in November, was doing resistance exercise training and felt discomfort in the right groin. He noticed a bulge there as well. He saw his primary care physician who diagnosed him as having a right inguinal hernia. He was seen in the office and found to have a reducible right inguinal hernia. He is taken to surgery now for robotic laparoscopic right inguinal hernia repair with mesh. Medical history shows that he has obstructive sleep apnea, ADHD. He has a history of radiofrequency ablation for paroxysmal SVT in 1994. [facility] Past Medical History Medical History (Updated 03/15/24 @ 09:38 by Andrew Rasmussen MD) ADHD Anxiety Colon cancer screening Dyspnea Hypertension BRENT (obstructive sleep apnea) Surgical History Surgical History H/O cardiac radiofrequency ablation 1994; due to paroxysmal SVT. History of appendectomy 1991 Hx of basal cell carcinoma excision Family History Family History Mother COPD (chronic obstructive pulmonary disease) Lung cancer Father Bipolar disorder Social History Social History Social History: Mr. Benavides lives at home in [place]. 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 He drinks about 10 drinks per week, a combination of liquor and beer. Never smoker, denies other substance use. His PCP is Dr. Roberth Marquez. He is full code status. Smoking status: Never smoker Second hand tobacco smoke exposure: No Alcohol intake: current Drinks per week: 10 Alcohol use details: few times weekly Substance use: never Substance use type: does not use Living arrangements: alone Spiritual care concerns: No Same Day Admit/Disch: Med Pre-admit Medications Home Medications Medication Instructions Recorded Confirmed Type dextroamphetamine-amphetamine 20 20 mg PO DAILY 08/06/20 03/15/24 History mg tablet (Adderall) fluticasone propionate 50 1 spray intranasal BID #9.9 mL 08/19/20 03/15/24 Rx mcg/actuation nasal spray,suspension cetirizine 10 mg tablet (Zyrtec) 10 mg PO DAILY PRN Allergy Symptoms 03/06/24 03/15/24 History irbesartan 150 mg tablet 150 mg PO DAILY 03/06/24 03/15/24 History ketorolac 10 mg tablet 10 mg PO Q6H 4 days #16 tabs 03/15/24 Rx oxycodone-acetaminophen 5 mg-325 0.5 - 1 tablet PO Q6H PRN pain #10 03/15/24 Rx mg tablet tabs Review of Systems Review of Systems All systems reviewed & are unremarkable except as noted in HPI and below (HPI) Exam Const: General: comfortable, no acute distress, alert and awake HENMT: Head: normocephalic and atraumatic Mouth: Yes Normal oral and palatal mucosa present Eyes: Conjunctivae: conjunctivae normal Pupils: Equal, round and reactive pupils present EOM: EOMs intact bilaterally Neck: Neck: normal visual inspection, no lymphadenopathy and nontender Resp: Effort & Inspection: normal respiratory effort Auscultation: clear to auscultation bilaterally Cardio: Rate: regular rate Rhythm: regular rhythm Heart sounds: no gallops, no murmurs and no rubs GI: Inspection: non-distended GI Palp: Yes Soft to palpation, No Tenderness to palpation present (GI), No Hepatomegaly present and No Splenomegaly present : Male General Exam: Yes hernia (Reducible right inguinal hernia, nontender, no left inguinal hernia) Penis: Yes normal penis Scrotum: scrotum normal Testes: Testes normal Skin: Lesions: no lesions Rashes: no rashes Neuro: General: no focal motor deficits and CN's II-XI intact bilaterally Cranial nerves: Yes Equal, round and reactive pupils present, Yes Bilaterally intact EOM present, Yes facial symmetry and Yes Midline tongue present Speech: normal speech Motor exam (neuro): 5/5 motor stren
[2024-03-15] VITALS (10 sets, daily range): BP systolic 122–148; BP diastolic 72–92; PULSE 75–95; RESP 12–20; TEMP 36–36.2; O2SAT 96–100
[2024-03-15] MEDS: LACTATED RINGERS 1,000 ML 30 ML IV CONT ×3 (06:30→10:35)
[2024-03-15] MEDS: ACETAMINOPHEN 500 MG TABLET 1000 MG PO (06:31)
[2024-03-15] MEDS: KETOROLAC 15 MG/ML VIAL (*BKC) IV PUSH (06:32)
--- NOTE | 2024-03-15 07:13 | WPDANESEPPF ---
Anes - Initial Pre Proc Eval Procedure: Operation Date: 03/15/24 07:30 Proposed Procedures p Robotic Assisted Laparoscopic Right Inguinal Hernia Repair with Mesh - Andrew Rasmussen MD Date/Time: 03/15/24 07:13 Surgeon: Andrew Rasmussen MD Pre Op Diagnosis: Rt Ing Hernia Patient Data Age: 53 Gender: M Height: 1.78 m Weight: 92.2 kg Last Vital Signs Temp 96.8 F L 03/15/24 06:04 Pulse 76 03/15/24 06:04 Resp 18 03/15/24 06:04 BP 124/82 03/15/24 06:04 Pulse Ox 100 03/15/24 06:04 O2 Del Method Room Air 03/15/24 06:04 Allergies Allergy/AdvReac Type Severity Reaction Status Date / Time No Known Allergies Allergy Verified 03/15/24 06:47 Home Medications Medication Instructions Recorded Confirmed Type dextroamphetamine-amphetamine 20 20 mg PO DAILY 08/06/20 03/15/24 History mg tablet (Adderall) fluticasone propionate 50 1 spray intranasal BID #9.9 mL 08/19/20 03/15/24 Rx mcg/actuation nasal spray,suspension cetirizine 10 mg tablet (Zyrtec) 10 mg PO DAILY PRN Allergy Symptoms 03/06/24 03/15/24 History irbesartan 150 mg tablet 150 mg PO DAILY 03/06/24 03/15/24 History Patient hx anesthesia problems: none Family hx anesthesia problems: none Results Review: All pre-operative results and documents have been reviewed as part of the pre-operative evaluation. [facility] Past Medical History Medical History ADHD Anxiety Colon cancer screening Dyspnea Hypertension BRENT (obstructive sleep apnea) Surgical History Surgical History H/O cardiac radiofrequency ablation 1994; due to paroxysmal SVT. History of appendectomy 1991 Hx of basal cell carcinoma excision Family History Family History Mother COPD (chronic obstructive pulmonary disease) Lung cancer Father Bipolar disorder Social History Social History Social History: Mr. Benavides lives at home in [place]. 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 He drinks about 10 drinks per week, a combination of liquor and beer. Never smoker, denies other substance use. His PCP is Dr. Roberth Marquez. He is full code status. Smoking status: Never smoker Second hand tobacco smoke exposure: No Alcohol intake: current Drinks per week: 10 Alcohol use details: few times weekly Substance use: never Substance use type: does not use Living arrangements: alone Spiritual care concerns: No Anes - Eval Final PreProcedure Day of Procedure 03/15/24 07:13 Patient weight: normal Heart: regular rate and rhythm Lungs: clear to auscultation Airway: Mallampati scale class II Neurological: alert and oriented Last oral intake: >/= 8 hours ASA classification: III Emergent: no Anesthetic plan: proceed Anesthesia type and monitoring: general ETT and standard monitoring Results Review: All pre-operative results and documents have been reviewed as part of the pre-operative evaluation. Informed Consent: The patient's anesthetic plan and its attendant risks and benefits were discussed with the patient/family/POA. Questions were solicited and answers provided to the satisfaction of the patient/family/POA.
--- NOTE | 2024-03-15 07:15 | WPDHPUPDATE1 ---
History and Physical Update Update Date/Time: 03/15/24 07:15 History and Physical has been reviewed, including an updated exam of the patient. There are NO changes in the patient's condition. Risks, benefits, and alternatives have been discussed and questions answered. Patient agrees to proceed with procedure.
[2024-03-15] MEDS: ceFAZolin 2 GM/D5W 50 ML 2 GM/50 ML BAG IVPB (07:37)
[2024-03-15] MEDS: BUPIVACAINE/EPINEPHRINE 0.5% 30 ML VIAL INFILTRATE (07:50)
[2024-03-15] MEDS: fentaNYL CITRATE INJ (*CRX) 100 MCG/2 ML VIAL 25 MCG IV PUSH ×6 (09:20→09:40)
--- NOTE | 2024-03-15 09:38 | W.PM.PROC2 ---
Procedure Note - Detailed Date of Procedure 03/15/24 Pre-op Diagnosis Rt Ing Hernia Post-op Diagnosis Same Procedure Performed Robotic laparoscopic repair right inguinal hernia with mesh Surgeon Andrew Rasmussen MD Vacuum Cooker Operator Chao FRANCIS Anesthesia General and Local Indications Patient noticed a bulge with some discomfort and constipation. Bulges in the right groin. Exam showed a right inguinal hernia. There was no left inguinal hernia. Findings Large indirect right inguinal hernia, no left inguinal hernia noted Description of Procedure Patient was taken to surgery and induced into general anesthesia. The abdomen is prepped and draped. Robotic trocars were placed in the usual fashion after 1st using applied Medical optical trocar. Local anesthetic was infiltrated into each of the trocar sites before incision. 10 cc of local was also infiltrated for an ilioinguinal nerve block on the right side. Patient was placed in Trendelenburg. The robot was brought into the field and the camera was docked. Camera was targeted and then the 2 additional robotic arms were docked and instruments targeted. Surgeon went to the robotic console. Peritoneal flap was created anteriorly across the inguinal canal structures. Dissection of the flap was done and brought fashion and there was minimal bleeding. Medially the dissection was carried down to the pubis and Raphael's ligament which were exposed. Dissection was carried about 2 cm posterior to Raphael's ligament. We then dissected the flap laterally beyond the ileopubic tract. I then dissected on the hernia sac and carefully dissected the spermatic cord vessels from the lateral posterior aspect. I then divided some of the transversalis sling and slowly reduced the hernia sac without any bleeding. This dissection was continued and I also continued to separate the hernia sac from the cord structures. Eventually the into the sac was found and carefully dissected free from the attachments in the inguinal canal and away from the cord structures. I then dissected the peritoneum more posterior so that there was plenty of room for the mesh. A Bard 3DMax right mid large mesh was then placed in the abdomen. It was positioned appropriately. 3-0 Vicryl suture were used to secure it to Raphael's ligament and to the anterior abdominal wall on each side of the inferior epigastric vessels. Mesh was in good position. The peritoneal flap was closed with running 3 0 V lock suture. There was a small hole in the peritoneum posteriorly. This was closed with 3-0 Vicryl suture. All looked good. This suture and needles were removed. Desufflation was carried out and the instruments as well as trocars were removed. Skin incisions were closed with subcuticular 4-0 Monocryl skin suture. The wounds were dressed with Exofin surgical adhesive. An athletic supporter was placed. Patient was awakened and taken to recovery in good condition. Sponge and needle counts were correct x2. Implants 16 x 10 cm right mid Bard 3DMax mesh-large Estimated Blood Loss -5 Drains No Packing No Pathology None sent Complications No immediate complications Condition Stable Disposition PACU [facility] Billing Surgery - Charge Forward: Surgery Billing (Robotic laparoscopic repair right inguinal hernia with mesh)
== END 2024-03-15 11:55 | disposition home or self-care (01) ==
PROVIDERS: PCP Emergency Medicine; Visit Provider Surgery
PROC: 8E0Y4CZ Robotic Assisted Procedure of Lower Extremity, Percutaneous Endoscopic Approach (ICD-10-PCS; CPT 49650; principal; 2024-03-15 07:30)
DX: K40.90 Unilateral inguinal hernia, without obstruction or gangrene, not specified as recurrent (principal); F90.9 Attention-deficit hyperactivity disorder, unspecified type; I10 Essential (primary) hypertension; G47.33 Obstructive sleep apnea (adult) (pediatric); F41.9 Anxiety disorder, unspecified
CPT/HCPCS: 49650; S2900; A9270; C1781; J0690; J1100; J1170; J1885; J2250; J2405; J2704; J3010; J7030; J7120